=== PATIENT | female | born 1945 | race Caucasian/White ===

== ENCOUNTER → 2017-01-23 | Outpatient (CLI) | payer MEDICARE ==
[2013-12-11 12:01] VITALS: BP 162/83
[~2017-01-23] MED LIST: EVISTA 60MG60 MG/TAB PO; SYNTHROID0.125 MG PO
== END ==
LOC: LAB 15:56
DX: R10.32 Left lower quadrant pain (principal)

== ENCOUNTER → 2017-09-06 | Outpatient (CLI) | payer MEDICARE ==
[~2017-09-06] VITALS: Ht 172.7 cm; Wt 79.5 kg
[~2017-09-06] MED LIST changes: +CALCIUM500 M1 PO; +CENTRUM1 TA1 PO
[2017-09-06 09:30] VITALS: BP 180/87
== END ==
LOC: AMSURD 09:21
DX: I10 Essential (primary) hypertension (principal); E83.110 Hereditary hemochromatosis; E78.2 Mixed hyperlipidemia; R07.9 Chest pain, unspecified

== ENCOUNTER → 2017-10-08 | Outpatient (CLI) | payer MEDICARE ==
[2017-09-06 09:30] VITALS: BP 180/87
[2017-10-08 17:01] LABS: ALBUMIN 3.9 g/dL (3.5-5.0); BUN/CREATININE RATIO 23.3 (6.0-26.0); POTASSIUM 4.1 mmol/L (3.6-5.0); TOTAL BILIRUBIN 0.2 mg/dL (0.2-1.3)
[2017-10-08 18:01] LABS: EOS # 0.2 (0.04-0.40); EOS % 3.6 % (1.0-5.0); HEMATOCRIT 37.6 % (37.0-47.0); HEMOGLOBIN 11.5 g/dL (12.5-16.0); LYMPH# 1.1 (1.50-4.00); MEAN CELL VOLUME 83 fl (78-100); MEAN CORPUSCULAR HEMOGLOBIN 25 pg (27-31); MEAN CORPUSCULAR HGB CONC 31 g/dL (33-37); MEAN PLATELET VOLUME 10.7 fl (7.4-10.4); MONO # 0.5 (0.20-0.80); NEU # 3.7 (1.40-6.50); PLATELET COUNT 204 K/mm3 (130-400); RED BLOOD COUNT 4.56 M/mm3 (4.10-5.30); RED CELL DISTRIBUTION WIDTH 15.3 % (11.5-14.5); WHITE BLOOD COUNT 5.5 K/mm3 (4.8-10.8)
[2017-10-08 19:16] LABS: ERYTHROCYTE SEDIMENTATION RATE 30 mm/hr (0-30)
== END ==
LOC: LAB 14:40
PROVIDERS: Internal Medicine
DX: E83.110 Hereditary hemochromatosis (principal); E78.5 Hyperlipidemia, unspecified; M81.0 Age-related osteoporosis without current pathological fracture; E03.9 Hypothyroidism, unspecified; Z12.11 Encounter for screening for malignant neoplasm of colon; Z88.1 Allergy status to other antibiotic agents; Z88.0 Allergy status to penicillin

== ENCOUNTER → 2017-12-04 | Outpatient (CLI) | payer MEDICARE ==
[2017-09-06 09:30] VITALS: BP 180/87
== END ==
LOC: LAB 15:26
DX: E78.2 Mixed hyperlipidemia (principal); Z12.11 Encounter for screening for malignant neoplasm of colon; E83.110 Hereditary hemochromatosis; M81.0 Age-related osteoporosis without current pathological fracture

== ENCOUNTER → 2018-06-04 | Outpatient (CLI) | payer MEDICARE ==
[~2018-06-04] VITALS: Ht 172.7 cm; Wt 79.5 kg
[2018-06-04 17:20] VITALS: BP 138/74
[2018-06-04 18:02] LABS: EOS # 0.3 (0.04-0.40); EOS % 4.9 % (1.0-5.0); HEMATOCRIT 41.5 % (37.0-47.0); HEMOGLOBIN 13.7 g/dL (12.5-16.0); LYMPH# 1.2 (1.50-4.00); MEAN CELL VOLUME 80 fl (78-100); MEAN CORPUSCULAR HEMOGLOBIN 26 pg (27-31); MEAN CORPUSCULAR HGB CONC 33 g/dL (33-37); MEAN PLATELET VOLUME 10.3 fl (7.4-10.4); MONO # 0.6 (0.20-0.80); NEU # 3.7 (1.40-6.50); PLATELET COUNT 187 K/mm3 (130-400); RED BLOOD COUNT 5.18 M/mm3 (4.10-5.30); WHITE BLOOD COUNT 5.7 K/mm3 (4.8-10.8)
[2018-06-04 18:08] LABS: ALBUMIN 4.2 g/dL (3.5-5.0); CALCIUM 9.6 mg/dL (8.4-10.2); POTASSIUM 3.9 mmol/L (3.6-5.0); TOTAL BILIRUBIN 0.4 mg/dL (0.2-1.3); TOTAL PROTEIN 7.9 g/dL (6.3-8.2)
[2018-06-04 18:09] LABS: PROTHROMBIN TIME 9.3 SECONDS (9.0-12.0)
[2018-06-04 18:46] LABS: RED CELL DISTRIBUTION WIDTH 18.3 % (11.5-14.5)
[2018-06-04 19:13] LABS: URINE APPEARANCE CLEAR; URINE COLOR YELLOW
[2018-06-04 19:14] LABS: URINE BILIRUBIN NEGATIVE (NEGATIVE); URINE BLOOD NEGATIVE (NEGATIVE); URINE GLUCOSE NEGATIVE (NEGATIVE); URINE KETONE NEGATIVE (NEGATIVE); URINE LEUKOCYTE ESTERASE NEGATIVE (NEGATIVE); URINE NITRATE NEGATIVE (NEGATIVE); URINE PROTEIN(semi-quant) TRACE mg/dL (NEGATIVE); URINE UROBILINOGEN NORMAL (NORMAL); URINE WBC 0-1 /hpf (0-3)
== END ==
LOC: RAD 16:47 → AMSURD 16:49
PROVIDERS: Internal Medicine
DX: Z01.818 Encounter for other preprocedural examination (principal); N81.2 Incomplete uterovaginal prolapse

== ENCOUNTER → 2018-07-16 | Outpatient (CLI) | payer MEDICARE ==
[2018-06-04 17:20] VITALS: BP 138/74
[2018-07-16 09:22] LABS: HEMATOCRIT 44.8 % (37.0-47.0); HEMOGLOBIN 14.8 g/dL (12.5-16.0)
== END ==
LOC: LAB 09:07
PROVIDERS: Internal Medicine
DX: E83.119 Hemochromatosis, unspecified (principal)

== ENCOUNTER → 2018-09-17 | Outpatient (CLI) | payer MEDICARE ==
[2018-06-04 17:20] VITALS: BP 138/74
[2018-09-17 11:30] LABS: HEMATOCRIT 42.6 % (37.0-47.0); HEMOGLOBIN 13.9 g/dL (12.5-16.0)
[2018-09-18 04:14] LABS: T3 TOTAL 93 ng/dL (87-178)
== END ==
LOC: LAB 11:15
PROVIDERS: Internal Medicine
DX: E03.9 Hypothyroidism, unspecified (principal); E83.119 Hemochromatosis, unspecified

== ENCOUNTER 2018-10-22 18:28 | Emergency (ER) | payer MEDICARE ==
[2018-10-22] MEDS ORDERED: ASPIR LOW81 MG PO (18:38)
[2018-10-22 19:07] LABS: EOS # 0.2 (0.04-0.40); EOS % 3.5 % (1.0-5.0); HEMATOCRIT 43.2 % (37.0-47.0); HEMOGLOBIN 14.1 g/dL (12.5-16.0); LYMPH# 0.8 (1.50-4.00); MEAN CELL VOLUME 84 fl (78-100); MEAN CORPUSCULAR HEMOGLOBIN 28 pg (27-31); MEAN CORPUSCULAR HGB CONC 33 g/dL (33-37); MEAN PLATELET VOLUME 10.6 fl (7.4-10.4); MONO # 0.4 (0.20-0.80); NEU # 5.4 (1.40-6.50); PLATELET COUNT 194 K/mm3 (130-400); RED BLOOD COUNT 5.13 M/mm3 (4.10-5.30); RED CELL DISTRIBUTION WIDTH 13.4 % (11.5-14.5); WHITE BLOOD COUNT 6.9 K/mm3 (4.8-10.8)
[2018-10-22 19:16] LABS: PARTIAL THROMBOPLASTIN TIME 23.1 SECONDS (21.0-32.0); PROTHROMBIN TIME 9.5 SECONDS (9.0-12.0)
[2018-10-22 19:17] LABS: ALBUMIN 4.6 g/dL (3.5-5.0); CALCIUM 9.7 mg/dL (8.4-10.2); POTASSIUM 3.4 mmol/L (3.6-5.0); TOTAL BILIRUBIN 0.4 mg/dL (0.2-1.3); TOTAL PROTEIN 8.6 g/dL (6.3-8.2)
[2018-10-22 19:43] LABS: URINE COLOR YELLOW
[2018-10-22 19:44] LABS: PH-URINE 6.5 (5.0 - 8.0); URINE APPEARANCE CLEAR; URINE BILIRUBIN NEGATIVE (NEGATIVE); URINE BLOOD NEGATIVE (NEGATIVE); URINE GLUCOSE NEGATIVE (NEGATIVE); URINE KETONE NEGATIVE (NEGATIVE); URINE LEUKOCYTE ESTERASE NEGATIVE (NEGATIVE); URINE NITRATE NEGATIVE (NEGATIVE); URINE PROTEIN(semi-quant) TRACE mg/dL (NEGATIVE); URINE UROBILINOGEN NORMAL (NORMAL); URINE WBC 0-1 /hpf (0-3)
[2018-10-22 20:46] VITALS: BP 194/96
== END 2018-10-22 20:46 | disposition home or self-care (01) ==
LOC: ED 18:28
PROVIDERS: Nurse Practitioner
DX: S05.02XA Injury of conjunctiva and corneal abrasion without foreign body, left eye, initial encounter (principal); I10 Essential (primary) hypertension; E83.119 Hemochromatosis, unspecified; E07.9 Disorder of thyroid, unspecified; Z98.51 Tubal ligation status; Z79.82 Long term (current) use of aspirin

== ENCOUNTER → 2018-11-08 | Outpatient (CLI) | payer MEDICARE ==
[2018-10-22 20:46] VITALS: BP 194/96
[~2018-11-08] MED LIST changes: +ASPIR LOW81 MG PO
[2018-11-08 11:51] LABS: HEMATOCRIT 41.7 % (37.0-47.0); HEMOGLOBIN 13.4 g/dL (12.5-16.0)
[2018-11-09 00:58] LABS: T3 TOTAL 87 ng/dL (87-178)
== END ==
LOC: LAB 10:58
PROVIDERS: Internal Medicine
DX: E83.119 Hemochromatosis, unspecified (principal); E03.4 Atrophy of thyroid (acquired)

== ENCOUNTER → 2018-12-24 | Outpatient (CLI) | payer MEDICARE ==
[2018-12-24 16:41] LABS: HEMATOCRIT 39.5 % (37.0-47.0); HEMOGLOBIN 12.5 g/dL (12.5-16.0)
== END ==
LOC: LAB 16:31
PROVIDERS: Internal Medicine
DX: E83.119 Hemochromatosis, unspecified (principal)

== ENCOUNTER → 2019-02-21 | Outpatient (CLI) | payer MEDICARE ==
[2019-02-21 14:03] LABS: HEMATOCRIT 42.9 % (37.0-47.0); HEMOGLOBIN 13.9 g/dL (12.5-16.0)
== END ==
LOC: LAB 13:45
PROVIDERS: Internal Medicine
DX: E83.119 Hemochromatosis, unspecified (principal)

== ENCOUNTER → 2019-04-14 | Outpatient (CLI) | payer MEDICARE ==
[2019-04-14 11:17] LABS: HEMATOCRIT 43.8 % (37.0-47.0); HEMOGLOBIN 14.2 g/dL (12.5-16.0)
[2019-04-14 12:28] LABS: ALBUMIN 4.2 g/dL (3.4-4.8); POTASSIUM 4.1 mmol/L (3.5-5.1)
[2019-04-14 12:31] LABS: TOTAL PROTEIN 8.6 g/dL (6.2-8.1)
[2019-04-14 12:33] LABS: TOTAL BILIRUBIN 0.4 mg/dL (0.2-1.2)
[2019-04-14 12:51] LABS: EOS # 0.2 (0.04-0.40); EOS % 3.3 % (1.0-5.0); LYMPH# 0.9 (1.50-4.00); MEAN CELL VOLUME 85 fl (78-100); MEAN CORPUSCULAR HEMOGLOBIN 28 pg (27-31); MEAN CORPUSCULAR HGB CONC 32 g/dL (33-37); MEAN PLATELET VOLUME 11.4 fl (7.4-10.4); MONO # 0.4 (0.20-0.80); NEU # 3.6 (1.40-6.50); PLATELET COUNT 191 K/mm3 (130-400); RED BLOOD COUNT 5.16 M/mm3 (4.10-5.30); RED CELL DISTRIBUTION WIDTH 14.3 % (11.5-14.5); WHITE BLOOD COUNT 5.1 K/mm3 (4.8-10.8)
[2019-04-14 13:52] LABS: ERYTHROCYTE SEDIMENTATION RATE 25 mm/hr (0-30)
[2019-04-15 00:59] LABS: T3 TOTAL 98 ng/dL (87-178)
== END ==
LOC: LAB 11:04
PROVIDERS: Internal Medicine
DX: Z12.11 Encounter for screening for malignant neoplasm of colon (principal); M81.0 Age-related osteoporosis without current pathological fracture; E78.2 Mixed hyperlipidemia; E03.4 Atrophy of thyroid (acquired); E83.110 Hereditary hemochromatosis

== ENCOUNTER → 2020-04-09 | Outpatient (CLI) | payer MEDICARE ==
[2020-04-09 12:17] LABS: EOS # 0.1 (0.04-0.40); EOS % 2.6 % (1.0-5.0); HEMATOCRIT 44.6 % (37.0-47.0); HEMOGLOBIN 15.4 g/dL (12.5-16.0); LYMPH# 1.2 (1.50-4.00); MEAN CELL VOLUME 92 fl (78-100); MEAN CORPUSCULAR HEMOGLOBIN 32 pg (27-31); MEAN CORPUSCULAR HGB CONC 35 g/dL (33-37); MEAN PLATELET VOLUME 10.3 fl (7.4-10.4); MONO # 0.4 (0.20-0.80); NEU # 3.6 (1.40-6.50); PLATELET COUNT 158 K/mm3 (130-400); RED BLOOD COUNT 4.86 M/mm3 (4.10-5.30); RED CELL DISTRIBUTION WIDTH 12.6 % (11.5-14.5); WHITE BLOOD COUNT 5.4 K/mm3 (4.8-10.8)
[2020-04-09 12:21] LABS: ALBUMIN 4.1 g/dL (3.4-4.8); POTASSIUM 4.2 mmol/L (3.5-5.1)
[2020-04-09 12:22] LABS: CALCIUM 9.8 mg/dL (8.3-10.5)
[2020-04-09 12:23] LABS: TOTAL PROTEIN 7.6 g/dL (6.2-8.1)
[2020-04-09 12:25] LABS: TOTAL BILIRUBIN 0.8 mg/dL (0.2-1.2)
[2020-04-09 13:33] LABS: ERYTHROCYTE SEDIMENTATION RATE 12 mm/hr (0-30)
== END ==
LOC: LAB 11:51
PROVIDERS: Internal Medicine
DX: Z12.11 Encounter for screening for malignant neoplasm of colon (principal); E83.110 Hereditary hemochromatosis; M81.0 Age-related osteoporosis without current pathological fracture; E78.5 Hyperlipidemia, unspecified; E03.9 Hypothyroidism, unspecified

== ENCOUNTER → 2020-05-04 | Outpatient (CLI) | payer MEDICARE ==
[2020-05-04 16:37] LABS: HEMATOCRIT 45.8 % (37.0-47.0); HEMOGLOBIN 15.8 g/dL (12.5-16.0)
== END ==
LOC: LAB 16:20
PROVIDERS: Internal Medicine
DX: E83.119 Hemochromatosis, unspecified (principal)

== ENCOUNTER → 2020-05-27 | Outpatient (CLI) | payer MEDICARE ==
[2020-05-27 09:20] LABS: HEMATOCRIT 47.3 % (37.0-47.0); HEMOGLOBIN 16.1 g/dL (12.5-16.0)
== END ==
LOC: LAB 09:07
PROVIDERS: Internal Medicine
DX: E83.119 Hemochromatosis, unspecified (principal)

== ENCOUNTER → 2020-06-24 | Outpatient (CLI) | payer MEDICARE ==
[2020-06-24 09:50] LABS: HEMATOCRIT 45.4 % (37.0-47.0); HEMOGLOBIN 15.5 g/dL (12.5-16.0)
== END ==
LOC: LAB 09:39
PROVIDERS: Internal Medicine
DX: E83.119 Hemochromatosis, unspecified (principal)

== ENCOUNTER → 2020-08-13 | Outpatient (CLI) | payer MEDICARE ==
[2020-08-13 11:05] LABS: HEMATOCRIT 43.2 % (37.0-47.0); HEMOGLOBIN 14.5 g/dL (12.5-16.0)
== END ==
LOC: LAB 10:34
PROVIDERS: Internal Medicine
DX: E83.119 Hemochromatosis, unspecified (principal)

== ENCOUNTER → 2020-10-13 | Outpatient (CLI) | payer MEDICARE ==
[2020-10-13 10:48] LABS: HEMATOCRIT 44.5 % (37.0-47.0); HEMOGLOBIN 14.5 g/dL (12.5-16.0)
== END ==
LOC: LAB 10:24
PROVIDERS: Internal Medicine
DX: E83.119 Hemochromatosis, unspecified (principal)

== ENCOUNTER → 2020-12-07 | Outpatient (CLI) | payer MEDICARE ==
[2020-12-07 16:32] LABS: HEMATOCRIT 44.1 % (37.0-47.0); HEMOGLOBIN 14.3 g/dL (12.5-16.0)
== END ==
LOC: LAB 16:18
PROVIDERS: Internal Medicine
DX: E83.119 Hemochromatosis, unspecified (principal)

== ENCOUNTER → 2021-07-02 | Outpatient (CLI) | payer MEDICARE | LOC: RAD 10:04 | DX: M19.071 Primary osteoarthritis, right ankle and foot (principal); M25.561 Pain in right knee ==

== ENCOUNTER → 2021-08-17 | Outpatient (CLI) | payer MEDICARE ==
[2021-08-17 15:03] LABS: HEMATOCRIT 45.6 % (37.0-47.0); HEMOGLOBIN 15.6 g/dL (12.5-16.0)
== END ==
LOC: LAB 14:48
PROVIDERS: Internal Medicine
DX: E83.119 Hemochromatosis, unspecified (principal)

== ENCOUNTER → 2021-09-22 | Outpatient (CLI) | payer MEDICARE ==
[2021-09-22 14:34] LABS: BASO # 0.03 K/mm3 (0.02-0.10); EOS # 0.14 K/mm3 (0.04-0.40); EOS % 2.2 % (1.0-5.0); HEMATOCRIT 46.5 % (37.0-47.0); HEMOGLOBIN 16.1 g/dL (12.5-16.0); LYMPH# 1.56 K/mm3 (1.50-4.00); MEAN CELL VOLUME 93 fl (78-100); MEAN CORPUSCULAR HEMOGLOBIN 32 pg (27-31); MEAN CORPUSCULAR HGB CONC 35 g/dL (33-37); MEAN PLATELET VOLUME 10.1 fl (7.4-10.4); MONO # 0.48 K/mm3 (0.20-0.80); NEU # 4.21 K/mm3 (1.40-6.50); PLATELET COUNT 178 K/mm3 (130-400); RED BLOOD COUNT 4.98 M/mm3 (4.10-5.30); RED CELL DISTRIBUTION WIDTH 12.7 % (11.5-14.5); WHITE BLOOD COUNT 6.4 K/mm3 (4.8-10.8)
[2021-09-22 14:53] LABS: ALBUMIN 4.2 g/dL (3.4-4.8); POTASSIUM 3.8 mmol/L (3.5-5.1)
[2021-09-22 14:54] LABS: CALCIUM 10.2 mg/dL (8.3-10.5)
[2021-09-22 14:55] LABS: TOTAL PROTEIN 7.9 g/dL (6.2-8.1)
[2021-09-22 14:57] LABS: TOTAL BILIRUBIN 0.4 mg/dL (0.2-1.2)
== END ==
LOC: LAB 14:19
PROVIDERS: Internal Medicine
DX: E83.110 Hereditary hemochromatosis (principal); E03.4 Atrophy of thyroid (acquired)

== ENCOUNTER → 2021-12-09 | Outpatient (CLI) | payer MEDICARE ==
[2021-12-09 15:42] LABS: HEMATOCRIT 47.2 % (37.0-47.0); HEMOGLOBIN 16.1 g/dL (12.5-16.0)
== END ==
LOC: LAB 15:24
PROVIDERS: Internal Medicine
DX: E83.110 Hereditary hemochromatosis (principal); E03.4 Atrophy of thyroid (acquired)

== ENCOUNTER → 2022-02-20 | Outpatient (CLI) | payer MEDICARE ==
[2022-02-20 16:06] LABS: HEMATOCRIT 44.6 % (37.0-47.0); HEMOGLOBIN 15.1 g/dL (12.5-16.0)
== END ==
LOC: LAB 15:40
PROVIDERS: Internal Medicine
DX: E83.110 Hereditary hemochromatosis (principal)

== ENCOUNTER → 2022-04-10 | Outpatient (CLI) | payer MEDICARE ==
[2022-04-10 13:14] LABS: ALBUMIN 4.1 g/dL (3.4-4.8); POTASSIUM 4.4 mmol/L (3.5-5.1)
[2022-04-10 13:16] LABS: CALCIUM 10.1 mg/dL (8.3-10.5)
[2022-04-10 13:17] LABS: TOTAL PROTEIN 7.3 g/dL (6.2-8.1)
[2022-04-10 13:19] LABS: TOTAL BILIRUBIN 0.6 mg/dL (0.2-1.2)
[2022-04-14 14:54] LABS: VITAMIN B1 138 nmol/L (70-180)
== END ==
LOC: LAB 12:40
PROVIDERS: Internal Medicine
DX: E03.4 Atrophy of thyroid (acquired) (principal); E83.110 Hereditary hemochromatosis; E78.2 Mixed hyperlipidemia; N39.46 Mixed incontinence; M81.0 Age-related osteoporosis without current pathological fracture; I10 Essential (primary) hypertension; R20.2 Paresthesia of skin

== ENCOUNTER → 2023-05-29 | Outpatient (CLI) | payer MEDICARE ==
[2023-05-29 13:49] LABS: BASO # 0.03 K/mm3 (0.02-0.10); EOS # 0.22 K/mm3 (0.04-0.40); EOS % 3.5 % (1.0-5.0); HEMATOCRIT 46.4 % (37.0-47.0); HEMOGLOBIN 15.7 g/dL (12.5-16.0); LYMPH# 1.68 K/mm3 (1.50-4.00); MEAN CELL VOLUME 96 fl (78-100); MEAN CORPUSCULAR HEMOGLOBIN 33 pg (27-31); MEAN CORPUSCULAR HGB CONC 34 g/dL (33-37); MEAN PLATELET VOLUME 10.1 fl (7.4-10.4); MONO # 0.46 K/mm3 (0.20-0.80); NEU # 3.89 K/mm3 (1.40-6.50); PLATELET COUNT 167 K/mm3 (130-400); RED BLOOD COUNT 4.82 M/mm3 (4.10-5.30); RED CELL DISTRIBUTION WIDTH 11.8 % (11.5-14.5); WHITE BLOOD COUNT 6.3 K/mm3 (4.8-10.8)
[2023-05-29 13:57] LABS: ALBUMIN 3.8 g/dL (3.4-4.8); POTASSIUM 4.9 mmol/L (3.5-5.1)
[2023-05-29 13:58] LABS: CALCIUM 10.2 mg/dL (8.3-10.5)
[2023-05-29 13:59] LABS: TOTAL PROTEIN 6.8 g/dL (6.2-8.1)
[2023-05-29 14:01] LABS: TOTAL BILIRUBIN 0.5 mg/dL (0.2-1.2)
[2023-05-29 14:06] LABS: MAGNESIUM 1.94 mg/dL (1.60-2.60)
[2023-05-29 14:54] LABS: ERYTHROCYTE SEDIMENTATION RATE 31 mm/hr (0-30)
[2023-05-29 23:37] LABS: HEPATITIS C VIRUS ANTIBODY Negative (Negative)
== END ==
LOC: LAB 13:22
PROVIDERS: Internal Medicine
DX: Z12.11 Encounter for screening for malignant neoplasm of colon (principal); Z11.59 Encounter for screening for other viral diseases; E03.4 Atrophy of thyroid (acquired); I10 Essential (primary) hypertension; E83.110 Hereditary hemochromatosis; E78.2 Mixed hyperlipidemia; R73.9 Hyperglycemia, unspecified; M81.0 Age-related osteoporosis without current pathological fracture

== ENCOUNTER → 2023-06-21 | Outpatient (CLI) | payer MEDICARE ==
[2023-06-21 11:47] LABS: HEMATOCRIT 45.9 % (37.0-47.0)
== END ==
LOC: LAB 10:49
PROVIDERS: Internal Medicine
DX: E83.110 Hereditary hemochromatosis (principal)

== ENCOUNTER → 2023-09-06 | Outpatient (CLI) | payer MEDICARE ==
[2023-09-06 12:00] LABS: HEMATOCRIT 46.9 % (37.0-47.0); HEMOGLOBIN 16.2 g/dL (12.5-16.0)
== END ==
LOC: LAB 11:41
PROVIDERS: Internal Medicine
DX: Z01.89 Encounter for other specified special examinations (principal)

== ENCOUNTER → 2023-09-28 | Outpatient (CLI) | payer MEDICARE ==
[2023-09-28 11:21] LABS: HEMATOCRIT 46.2 % (37.0-47.0); HEMOGLOBIN 15.7 g/dL (12.5-16.0)
== END ==
LOC: LAB 10:57
PROVIDERS: Internal Medicine
DX: E83.110 Hereditary hemochromatosis (principal)

== ENCOUNTER → 2023-11-26 | Outpatient (CLI) | payer MEDICARE ==
[2023-11-26 11:17] LABS: HEMATOCRIT 48.6 % (37.0-47.0); HEMOGLOBIN 16.6 g/dL (12.5-16.0)
== END ==
LOC: LAB 10:59
PROVIDERS: Internal Medicine
DX: E83.110 Hereditary hemochromatosis (principal)

== ENCOUNTER → 2024-01-08 | Outpatient (CLI) | payer MEDICARE ==
[2024-01-08 17:23] LABS: BASO # 0.02 K/mm3 (0.02-0.10); EOS # 0.56 K/mm3 (0.04-0.40); EOS % 6.1 % (1.0-5.0); HEMATOCRIT 46.3 % (37.0-47.0); HEMOGLOBIN 15.7 g/dL (12.5-16.0); MEAN CELL VOLUME 92 fl (78-100); MEAN CORPUSCULAR HEMOGLOBIN 31 pg (27-31); MEAN CORPUSCULAR HGB CONC 34 g/dL (33-37); MEAN PLATELET VOLUME 9.8 fl (7.4-10.4); MONO # 0.94 K/mm3 (0.20-0.80); NEU # 6.17 K/mm3 (1.40-6.50); PLATELET COUNT 211 K/mm3 (130-400); RED BLOOD COUNT 5.02 M/mm3 (4.10-5.30); RED CELL DISTRIBUTION WIDTH 11.8 % (11.5-14.5); WHITE BLOOD COUNT 9.1 K/mm3 (4.8-10.8)
[2024-01-08 17:26] LABS: ALBUMIN 3.8 g/dL (3.4-4.8)
[2024-01-08 17:27] LABS: CALCIUM 10.3 mg/dL (8.3-10.5)
[2024-01-08 17:29] LABS: TOTAL PROTEIN 7.4 g/dL (6.2-8.1)
[2024-01-08 17:30] LABS: TOTAL BILIRUBIN 0.4 mg/dL (0.2-1.2)
[2024-01-08 17:35] LABS: MAGNESIUM 1.94 mg/dL (1.60-2.60)
[2024-01-08 17:48] LABS: D-DIMER 0.67 mg/L FEU (0.15-0.50)
== END ==
LOC: RAD 16:53
PROVIDERS: Internal Medicine
DX: R91.8 Other nonspecific abnormal finding of lung field (principal)

== ENCOUNTER → 2024-01-10 | Outpatient (CLI) | payer MEDICARE ==
[~2024-01-10] MED LIST changes: +Iohexol 350 - 100 ML VIAL IV ONE
== END ==
LOC: RAD 13:43
DX: I28.8 Other diseases of pulmonary vessels (principal)
CPT/HCPCS: Q9967

== ENCOUNTER → 2024-01-15 | Outpatient (CLI) | payer MEDICARE ==
[~2024-01-15] MED LIST changes: -Iohexol 350 - 100 ML VIAL IV ONE
[2024-01-15 14:30] LABS: HEMATOCRIT 45.3 % (37.0-47.0); HEMOGLOBIN 15.4 g/dL (12.5-16.0)
== END ==
LOC: LAB 14:10
PROVIDERS: Internal Medicine
DX: E83.110 Hereditary hemochromatosis (principal)

== ENCOUNTER → 2024-02-22 | Outpatient (CLI) | payer MEDICARE ==
[2024-02-22 16:48] LABS: HEMATOCRIT 43.9 % (37.0-47.0); HEMOGLOBIN 14.7 g/dL (12.5-16.0)
== END ==
LOC: LAB 16:29
PROVIDERS: Internal Medicine
DX: E83.110 Hereditary hemochromatosis (principal)

== ENCOUNTER → 2024-04-23 | Outpatient (CLI) | payer MEDICARE ==
[2024-04-23 15:56] LABS: HEMATOCRIT 42.9 % (37.0-47.0); HEMOGLOBIN 14.1 g/dL (12.5-16.0)
== END ==
LOC: LAB 15:42
PROVIDERS: Internal Medicine
DX: E83.110 Hereditary hemochromatosis (principal)

== ENCOUNTER → 2024-07-14 | Outpatient (CLI) | payer MEDICARE ==
[~2024-07-14] VITALS: Ht 172.7 cm; Wt 93.2 kg
[~2024-07-14] MED LIST changes: +COZAAR25 M1; +LEVOTHYROXINE0.05 MG PO; +LUTEIN20 M3; +METOPROLOL SUC100 M1; +VITAMIN D310 MC3; +XALATAN 2.5 ML2.5 ML OU
[2024-07-14 15:20] VITALS: BP 163/92
--- NOTE | 2024-07-14 15:21 | NUR ---
BLOOD WORK BROUGHT TO LAB AT THIS TIME.
[2024-07-14 15:39] LABS: HEMATOCRIT 46.3 % (37.0-47.0); HEMOGLOBIN 15.5 g/dL (12.5-16.0)
--- NOTE | 2024-07-14 16:29 | NUR ---
Hgb 15.5, Hct 46.3, and Ferritin 30 today. Held therapeutic phlebotomy since ferritin is less than [address]. Not[address] Dr[address] Hudson's office.
== END ==
LOC: AMSURD 15:04
PROVIDERS: Internal Medicine
DX: Z01.818 Encounter for other preprocedural examination (principal); E83.110 Hereditary hemochromatosis